=== PATIENT | male | born 1955 | race Caucasian/White ===

== ENCOUNTER 2021-02-27 11:42 | Inpatient (IN) | payer MEDICARE ==
[2021-02-27 12:16] VITALS: BMI 25.4
[2021-02-27] MEDS ORDERED: Dextrose 5% in Water 1,000 ML IV PRN (12:47)
[2021-02-27] MEDS ORDERED: Dextrose 50% Abboject 50 ML SYRINGE SLOW IVP PRN (12:47)
[2021-02-27] MEDS ORDERED: hydrALAZINE 20 MG/ML VIAL SLOW IVP PRN (12:47)
[2021-02-27] MEDS ORDERED: Ondansetron PF 4 MG/2 ML Vial IVP PRN (12:47)
[2021-02-27] MEDS ORDERED: traMADol HCl 50 MG TAB PO PRN (12:51)
[2021-02-27] MEDS: Morphine 4 MG/ML VIAL SLOW IVP PRN ×2 (13:24→17:57)
[2021-02-27] MEDS: Ibuprofen 200 MG TAB PO SCH ×2 (13:25→22:01)
[2021-02-27] MEDS: Acetaminophen 500 MG TAB PO SCH ×2 (13:26→22:02)
[2021-02-27] MEDS: Sodium Chloride 0.9% 1,000 ML IV SCH ×2 (13:27→22:03)
[2021-02-27] MEDS ORDERED: CEFAZOLIN 2 GM in Premix Bag 1 BAG IVPB SCH (13:30)
[2021-02-27] MEDS ORDERED: ceFAZolin Sodium/D5W 2 GM in Premix Bag 1 BAG IVPB SCH (13:45)
[2021-02-27] MEDS ORDERED: Ibuprofen 600 MG TAB PO SCH (14:00)
[2021-02-27] MEDS ORDERED: ceFAZolin 2 GM/DEX 5% 100 ML BAG ONE (18:28)
[2021-02-27] MEDS ORDERED: Fentanyl 100 MCG/2 ML VIAL ONE (19:42)
[2021-02-27] MEDS ORDERED: Midazolam HCl 2 mg/2 ml Vial ONE (19:51)
[2021-02-27] MEDS ORDERED: Glycopyrrolate 0.2 MG/ML 5 ML SYRINGE ONE (19:59)
[2021-02-27] MEDS ORDERED: Rocuronium Bromide 10 MG/ML (10ML VIAL) ONE (19:59)
[2021-02-27] MEDS ORDERED: PROPOFOL 200 MG/20 ML VIAL ONE (19:59)
[2021-02-27] MEDS ORDERED: Dexamethasone 20 MG/5 ML VIAL ONE (19:59)
[2021-02-27] MEDS ORDERED: Lidocaine 1% PF 5 ML VIAL ONE (19:59)
[2021-02-27] MEDS ORDERED: Ondansetron PF 4 MG/2 ML Vial ONE (19:59)
[2021-02-27] MEDS ORDERED: Ondansetron HCl/PF 4 MG/2 ML Vial IVP PRN (21:23)
[2021-02-27] MEDS ORDERED: PACU-Morphine 4MG/ML VIAL SLOW IVP PRN (21:23)
[2021-02-27] MEDS ORDERED: Promethazine HCl 25 MG/ML VIAL IVPB PRN (21:23)
[2021-02-27] MEDS ORDERED: Promethazine HCl 25 MG/ML VIAL IM PRN (21:23)
[2021-02-27] MEDS ORDERED: Ketorolac Tromethamine 30 MG/ML VIAL IVP PRN (21:23)
[2021-02-27] MEDS ORDERED: Ketorolac Tromethamine 30 MG/ML VIAL ONE (21:24)
[2021-02-27] MEDS: Senokot S 8.6-50 MG TAB PO SCH (22:01)
[2021-02-27] MEDS: Famotidine/PF 20 mg/2ml Vial SLOW IVP SCH (22:33)
[2021-02-28] MEDS: Acetaminophen 500 MG TAB PO SCH ×4 (02:19→20:20)
[2021-02-28] MEDS: Sodium Chloride 0.9% 1,000 ML IV SCH (02:20)
[2021-02-28] MEDS ORDERED: ceFAZolin Sodium/D5W 2 GM in Premix Bag 1 BAG IVPB SCH (04:00)
[2021-02-28] MEDS: Cyclobenzaprine 10 MG TAB PO PRN (04:10)
[2021-02-28] MEDS: Ibuprofen 200 MG TAB PO SCH ×3 (04:10→20:20)
[2021-02-28] MEDS: traMADol HCl 50 MG TAB PO PRN (04:10)
[2021-02-28 05:52] LABS: #Lymphocytes 0.6 thou/uL (1.20-3.40); #Monocytes 0.9 thou/uL (0.11-0.59); #Neutrophils 7.5 thou/uL (1.40-6.50); %Basophils 0.3 % (0.0-1.0); %Eosinophils 0.1 % (0.0-10.0); %Lymphocytes 6.3 % (21.0-51.0); %Monocytes 10.1 % (0.0-10.0); %Neutrophils 83.3 % (42.0-75.0); Hemoglobin 11.1 g/dL (14.0-18.0); Mean Corpuscular HGB CONC 34.8 g/dL (32.0-36.0); Mean Corpuscular Hemoglobin 30.1 pg (27.0-31.0); Mean Corpuscular Volume 86.6 fL (78.0-98.0); Mean Platelet Volume 8.3 fL (7.4-10.4); Platelet Count 142 thou/uL (130-400); RBC Distribution Width 13.4 % (11.5-14.5); Red Blood Cell (RBC) Count 3.68 mill/uL (4.70-6.10); White Blood Cell (WBC) Count 9.1 thou/uL (4.8-10.8)
[2021-02-28 06:10] LABS: Anion Gap 10 mmol/L (10-20); BUN (Urea Nitrogen) 12 mg/dL (8.4-25.7); Calc. Creatinine Clearance 84 mL/min (70-130); Calcium 7.4 mg/dL (7.8-10.44); Carbon Dioxide 22 mmol/L (23-31); Chloride 110 mmol/L (98-107); Glucose 161 mg/dL (80-115); Magnesium 1.6 mg/dL (1.6-2.6); Phosphorus 2.7 mg/dL (2.3-4.7); Potassium 3.9 mmol/L (3.5-5.1); Sodium 138 mmol/L (136-145)
[2021-02-28] MEDS: Famotidine/PF 20 mg/2ml Vial SLOW IVP SCH (08:43)
[2021-02-28] MEDS: Polyethylene Glycol 3350 17 GM Packet PO SCH (08:44)
[2021-02-28] MEDS: Senokot S 8.6-50 MG TAB PO SCH ×2 (08:46→20:21)
[2021-02-28] MEDS: Famotidine 20 MG TAB PO SCH ×2 (08:52→20:21)
[2021-02-28] MEDS ORDERED: Magnesium 2 GM/50 ML 2 GM in Premix Bag 1 BAG IVPB SCH (09:00)
[2021-02-28] MEDS ORDERED: PHOS-NAK 1 PKT PACK PO SCH (09:00)
[2021-02-28] MEDS: Morphine 4 MG/ML VIAL SLOW IVP PRN (17:08)
[2021-03-01] MEDS: Acetaminophen 500 MG TAB PO SCH ×4 (02:19→20:31)
[2021-03-01 05:56] LABS: #Eosinphils 0.4 thou/uL (0.0-0.7); #Lymphocytes 1.7 thou/uL (1.20-3.40); #Monocytes 0.7 thou/uL (0.11-0.59); #Neutrophils 3.7 thou/uL (1.40-6.50); %Basophils 0.1 % (0.0-1.0); %Eosinophils 6.1 % (0.0-10.0); %Lymphocytes 25.8 % (21.0-51.0); %Monocytes 10.6 % (0.0-10.0); %Neutrophils 57.4 % (42.0-75.0); Hemoglobin 9.3 g/dL (14.0-18.0); Mean Corpuscular HGB CONC 33.2 g/dL (32.0-36.0); Mean Corpuscular Hemoglobin 29.4 pg (27.0-31.0); Mean Corpuscular Volume 88.6 fL (78.0-98.0); Mean Platelet Volume 7.9 fL (7.4-10.4); Platelet Count 119 thou/uL (130-400); RBC Distribution Width 13.6 % (11.5-14.5); Red Blood Cell (RBC) Count 3.17 mill/uL (4.70-6.10); White Blood Cell (WBC) Count 6.4 thou/uL (4.8-10.8)
[2021-03-01] MEDS: Ibuprofen 200 MG TAB PO SCH ×3 (05:58→20:31)
[2021-03-01 06:14] LABS: Anion Gap 8 mmol/L (10-20); BUN (Urea Nitrogen) 15 mg/dL (8.4-25.7); Calc. Creatinine Clearance 82 mL/min (70-130); Calcium 7.9 mg/dL (7.8-10.44); Carbon Dioxide 28 mmol/L (23-31); Chloride 108 mmol/L (98-107); Glucose 103 mg/dL (80-115); Magnesium 2.1 mg/dL (1.6-2.6); Phosphorus 2.6 mg/dL (2.3-4.7); Potassium 4.4 mmol/L (3.5-5.1); Sodium 140 mmol/L (136-145)
[2021-03-01] MEDS: Polyethylene Glycol 3350 17 GM Packet PO SCH (09:12)
[2021-03-01] MEDS: Senokot S 8.6-50 MG TAB PO SCH ×2 (09:13→20:31)
[2021-03-01] MEDS: Enoxaparin Sodium 40 MG/0.4 ML SYRINGE SC SCH (10:28)
[2021-03-01] MEDS: Amlodipine 5 MG TAB PO SCH (10:28)
[2021-03-01] MEDS ORDERED: Sodium Chloride 0.9% 1,000 ML IV SCH (16:15)
[2021-03-02] MEDS: Acetaminophen 500 MG TAB PO SCH ×5 (02:16→23:53)
[2021-03-02 05:36] LABS: #Eosinphils 0.5 thou/uL (0.0-0.7); #Lymphocytes 1.3 thou/uL (1.20-3.40); #Monocytes 0.6 thou/uL (0.11-0.59); #Neutrophils 3.5 thou/uL (1.40-6.50); %Basophils 0.5 % (0.0-1.0); %Eosinophils 8.1 % (0.0-10.0); %Lymphocytes 22.7 % (21.0-51.0); %Monocytes 9.8 % (0.0-10.0); Hemoglobin 8.7 g/dL (14.0-18.0); Mean Corpuscular HGB CONC 34.4 g/dL (32.0-36.0); Mean Corpuscular Volume 87.1 fL (78.0-98.0); Mean Platelet Volume 8.2 fL (7.4-10.4); Platelet Count 134 thou/uL (130-400); RBC Distribution Width 13.5 % (11.5-14.5); Red Blood Cell (RBC) Count 2.92 mill/uL (4.70-6.10); White Blood Cell (WBC) Count 5.9 thou/uL (4.8-10.8)
[2021-03-02] MEDS: Ibuprofen 200 MG TAB PO SCH ×3 (05:52→21:03)
[2021-03-02 05:59] LABS: Anion Gap 10 mmol/L (10-20); BUN (Urea Nitrogen) 14 mg/dL (8.4-25.7); Calc. Creatinine Clearance 89 mL/min (70-130); Calcium 8.3 mg/dL (7.8-10.44); Carbon Dioxide 25 mmol/L (23-31); Chloride 110 mmol/L (98-107); Glucose 103 mg/dL (80-115); Magnesium 1.9 mg/dL (1.6-2.6); Phosphorus 2.6 mg/dL (2.3-4.7); Potassium 4.1 mmol/L (3.5-5.1); Sodium 141 mmol/L (136-145)
[2021-03-02] MEDS: Enoxaparin Sodium 40 MG/0.4 ML SYRINGE SC SCH (08:24)
[2021-03-02] MEDS: Senokot S 8.6-50 MG TAB PO SCH ×2 (08:25→21:03)
[2021-03-02] MEDS: Polyethylene Glycol 3350 17 GM Packet PO SCH (08:25)
[2021-03-02] MEDS: Amlodipine 5 MG TAB PO SCH (10:43)
[2021-03-02] MEDS: Cyclobenzaprine 10 MG TAB PO PRN (21:23)
[2021-03-03 04:31] LABS: #Eosinphils 0.4 thou/uL (0.0-0.7); #Lymphocytes 1.8 thou/uL (1.20-3.40); #Monocytes 0.6 thou/uL (0.11-0.59); #Neutrophils 2.7 thou/uL (1.40-6.50); %Basophils 0.4 % (0.0-1.0); %Eosinophils 7.3 % (0.0-10.0); %Lymphocytes 32.3 % (21.0-51.0); %Monocytes 10.7 % (0.0-10.0); %Neutrophils 49.3 % (42.0-75.0); Hemoglobin 8.7 g/dL (14.0-18.0); Mean Corpuscular HGB CONC 34.5 g/dL (32.0-36.0); Mean Corpuscular Hemoglobin 29.7 pg (27.0-31.0); Mean Corpuscular Volume 86.3 fL (78.0-98.0); Mean Platelet Volume 7.2 fL (7.4-10.4); Platelet Count 158 thou/uL (130-400); RBC Distribution Width 13.5 % (11.5-14.5); Red Blood Cell (RBC) Count 2.94 mill/uL (4.70-6.10); White Blood Cell (WBC) Count 5.4 thou/uL (4.8-10.8)
[2021-03-03] MEDS: Acetaminophen 500 MG TAB PO SCH ×3 (05:36→18:27)
[2021-03-03] MEDS: Ibuprofen 200 MG TAB PO SCH ×3 (05:37→20:56)
[2021-03-03 05:43] LABS: Anion Gap 10 mmol/L (10-20); BUN (Urea Nitrogen) 13 mg/dL (8.4-25.7); Calc. Creatinine Clearance 103 mL/min (70-130); Calcium 8.3 mg/dL (7.8-10.44); Carbon Dioxide 24 mmol/L (23-31); Chloride 107 mmol/L (98-107); Glucose 101 mg/dL (80-115); Phosphorus 3.2 mg/dL (2.3-4.7); Potassium 3.8 mmol/L (3.5-5.1); Sodium 137 mmol/L (136-145)
[2021-03-03] MEDS: Polyethylene Glycol 3350 17 GM Packet PO SCH (09:30)
[2021-03-03] MEDS: Senokot S 8.6-50 MG TAB PO SCH ×2 (09:31→21:10)
[2021-03-03] MEDS: Amlodipine 5 MG TAB PO SCH (09:32)
[2021-03-03] MEDS: Ascorbic Acid 500 mg Chewable Tablet PO SCH (09:32)
[2021-03-03] MEDS: Enoxaparin Sodium 40 MG/0.4 ML SYRINGE SC SCH (09:32)
[2021-03-03] MEDS: Ferrous Sulfate 325 MG TAB PO SCH (09:33)
[2021-03-04] MEDS: Acetaminophen 500 MG TAB PO SCH ×4 (00:18→18:56)
[2021-03-04] MEDS: Ibuprofen 200 MG TAB PO SCH ×3 (06:09→22:46)
[2021-03-04] MEDS: Amlodipine 5 MG TAB PO SCH (09:01)
[2021-03-04] MEDS: Ascorbic Acid 500 mg Chewable Tablet PO SCH (09:01)
[2021-03-04] MEDS: Enoxaparin Sodium 40 MG/0.4 ML SYRINGE SC SCH (09:02)
[2021-03-04] MEDS: Polyethylene Glycol 3350 17 GM Packet PO SCH (09:02)
[2021-03-04] MEDS: Senokot S 8.6-50 MG TAB PO SCH ×2 (09:03→21:14)
[2021-03-04] MEDS: Ferrous Sulfate 325 MG TAB PO SCH (09:08)
[2021-03-04] MEDS: Cyclobenzaprine 10 MG TAB PO PRN (22:48)
[2021-03-05] MEDS: Acetaminophen 500 MG TAB PO SCH ×4 (01:39→17:54)
[2021-03-05] MEDS: Ibuprofen 200 MG TAB PO SCH ×2 (05:51→14:27)
[2021-03-05] MEDS: Senokot S 8.6-50 MG TAB PO SCH (08:47)
[2021-03-05] MEDS: Ferrous Sulfate 325 MG TAB PO SCH (08:47)
[2021-03-05] MEDS: Polyethylene Glycol 3350 17 GM Packet PO SCH (08:48)
[2021-03-05] MEDS: Amlodipine 5 MG TAB PO SCH (08:48)
[2021-03-05] MEDS: Enoxaparin Sodium 40 MG/0.4 ML SYRINGE SC SCH (08:48)
[2021-03-05] MEDS: Ascorbic Acid 500 mg Chewable Tablet PO SCH (08:48)
[2021-03-05 15:54] VITALS: BP 128/68; TEMP 98.2
[2021-03-05] MEDS: traMADol HCl 50 MG TAB PO PRN (18:22)
== END 2021-03-05 19:10 | disposition swing bed (61) | DRG 481 ==
LOC: SURG B 12:07
PROVIDERS: ADMIT Surgery; ATTEND Surgery
PROC: 0QH736Z Insertion of Intramedullary Internal Fixation Device into Left Upper Femur, Percutaneous Approach (ICD-10-PCS; principal; 2021-02-27)
DX: S72.22XA Displaced subtrochanteric fracture of left femur, initial encounter for closed fracture (principal); D62 Acute posthemorrhagic anemia; Z20.822 Contact with and (suspected) exposure to COVID-19; W55.22XA Struck by cow, initial encounter; I95.1 Orthostatic hypotension
CPT/HCPCS: 36415; 76000; 80048; 83735; 84100; 85025; C1713; J1100; J1650; J1885; J2250; J2270; J2405; J2704; J3010; J3475; J7050; S0028

== ENCOUNTER 2021-05-25 14:03 | Outpatient (CLI) | payer MEDICARE | END 2021-05-25 14:04 | disposition home or self-care (01) | LOC: BICULT 14:03 | PROVIDERS: ATTEND Family Medicine | DX: R60.0 Localized edema (principal); I82.402 Acute embolism and thrombosis of unspecified deep veins of left lower extremity ==

== ENCOUNTER 2021-05-25 15:05 | Emergency (ER) | payer MEDICARE ==
[2021-05-25 16:36] LABS: #Eosinphils 0.5 thou/uL (0.0-0.7); #Lymphocytes 1.6 thou/uL (1.20-3.40); #Monocytes 0.5 thou/uL (0.11-0.59); #Neutrophils 2.7 thou/uL (1.40-6.50); %Basophils 0.5 % (0.0-1.0); %Eosinophils 10.2 % (0.0-10.0); %Lymphocytes 29.2 % (21.0-51.0); %Neutrophils 51.1 % (42.0-75.0); Hemoglobin 13.5 g/dL (14.0-18.0); Mean Corpuscular HGB CONC 32.9 g/dL (32.0-36.0); Mean Corpuscular Hemoglobin 29.9 pg (27.0-31.0); Mean Corpuscular Volume 90.9 fL (78.0-98.0); Mean Platelet Volume 7.1 fL (7.4-10.4); Platelet Count 195 thou/uL (130-400); White Blood Cell (WBC) Count 5.3 thou/uL (4.8-10.8)
[2021-05-25 17:00] LABS: ALT (SGPT) 38 U/L (8-55); AST (SGOT) 31 U/L (5-34); Albumin 3.9 g/dL (3.4-4.8); Alkaline Phosphatase 132 U/L (40-110); Anion Gap 10 mmol/L (10-20); BUN (Urea Nitrogen) 12 mg/dL (8.4-25.7); Bilirubin, Total 0.3 mg/dL (0.2-1.2); Calc. Creatinine Clearance 0 mL/min (70-130); Carbon Dioxide 28 mmol/L (23-31); Chloride 106 mmol/L (98-107); Globulin 3.4 g/dL (2.4-3.5); Glucose 97 mg/dL (80-115); Potassium 4.2 mmol/L (3.5-5.1); Protein, Total 7.3 g/dL (5.8-8.1); Sodium 140 mmol/L (136-145)
== END 2021-05-25 17:32 | disposition home or self-care (01) ==
LOC: ERS 15:05
DX: I82.402 Acute embolism and thrombosis of unspecified deep veins of left lower extremity (principal); Z79.899 Other long term (current) drug therapy; R60.0 Localized edema
CPT/HCPCS: 36415; 80053; 85025; 99283

== ENCOUNTER 2021-06-28 10:37 | Outpatient (CLI) | payer MEDICARE | END 2021-06-28 10:38 | disposition home or self-care (01) | LOC: CT 10:37 | PROVIDERS: ATTEND Orthopaedic Surgery | DX: S72.142D Displaced intertrochanteric fracture of left femur, subsequent encounter for closed fracture with routine healing (principal); Z98.890 Other specified postprocedural states ==

== ENCOUNTER 2021-07-27 05:26 | Inpatient (IN) | payer MEDICARE ==
[2021-07-24 11:17] VITALS: BMI 26.9
[2021-07-27] MEDS ORDERED: ceFAZolin (BATCH) 2 GM/100 ML BAG ONE (07:11)
[2021-07-27] MEDS ORDERED: Fentanyl 250 MCG/5 ML VIAL ONE (07:19)
[2021-07-27] MEDS ORDERED: ePHEDrine 50 MG/ML VIAL ONE ×2 (07:54)
[2021-07-27] MEDS ORDERED: Lidocaine 1% PF 5 ML VIAL ONE (07:54)
[2021-07-27] MEDS ORDERED: Glycopyrrolate 0.2 MG/ML 5 ML SYRINGE ONE (07:54)
[2021-07-27] MEDS ORDERED: Rocuronium Bromide 10 MG/ML (10ML VIAL) ONE (07:54)
[2021-07-27] MEDS ORDERED: Ondansetron PF 4 MG/2 ML Vial ONE ×2 (07:54→11:09)
[2021-07-27] MEDS ORDERED: Ketorolac Tromethamine 30 MG/ML VIAL ONE (07:54)
[2021-07-27] MEDS ORDERED: Dexamethasone 20 MG/5 ML VIAL ONE (07:54)
[2021-07-27] MEDS ORDERED: PROPOFOL 200 MG/20 ML VIAL ONE (07:54)
[2021-07-27] MEDS ORDERED: Promethazine HCl 25 MG/ML VIAL IVPB PRN (08:21)
[2021-07-27] MEDS ORDERED: HYDROmorphone 2 MG/ML VIAL SLOW IVP PRN (08:21)
[2021-07-27] MEDS ORDERED: Meperidine HCl/PF 25 MG/ML VIAL SLOW IVP PRN (08:21)
[2021-07-27] MEDS ORDERED: Ondansetron PF 4 MG/2 ML Vial SLOW IVP PRN (09:57)
[2021-07-27] MEDS ORDERED: traMADol HCl 50 MG TAB PO PRN (09:57)
[2021-07-27] MEDS ORDERED: ceFAZolin 2 GM/Dextrose 50 ML 2 GM in Premix Bag 1 BAG IVPB SCH (10:00)
[2021-07-27] MEDS ORDERED: PHARMACY TO RENALLY ADJUST ABX FS SCH (10:00)
[2021-07-27] MEDS ORDERED: TETANUS AND DIPHTHERIA TOX/PF 0.5 ML DISP.SYRIN IM SCH (10:00)
[2021-07-27] MEDS ORDERED: Fentanyl 100 MCG/2 ML VIAL ONE (10:39)
[2021-07-27] MEDS: HYDROcodone/Acetaminophen 10/325 mg Tablet PO PRN ×3 (13:47→22:14)
[2021-07-27] MEDS: CEFAZOLIN 2 GM, Admixture Fee 1 EACH in Sodium Chloride 0.9% 100 ML IVPB SCH (13:52)
[2021-07-27] MEDS: Aspirin 81 mg Enteric Coated Tablet PO SCH (19:46)
[2021-07-28] MEDS: HYDROcodone/Acetaminophen 10/325 mg Tablet PO PRN ×3 (02:00→11:59)
[2021-07-28] MEDS: CEFAZOLIN 2 GM, Admixture Fee 1 EACH in Sodium Chloride 0.9% 100 ML IVPB SCH ×2 (02:15→08:12)
[2021-07-28 05:18] LABS: #Eosinphils 0.1 thou/uL (0.0-0.7); #Lymphocytes 1.4 thou/uL (1.20-3.40); #Neutrophils 5.7 thou/uL (1.40-6.50); %Eosinophils 0.6 % (0.0-10.0); %Lymphocytes 17.1 % (21.0-51.0); %Monocytes 12.4 % (0.0-10.0); %Neutrophils 69.9 % (42.0-75.0); Mean Corpuscular HGB CONC 33.7 g/dL (32.0-36.0); Mean Corpuscular Hemoglobin 31.1 pg (27.0-31.0); Mean Corpuscular Volume 92.4 fL (78.0-98.0); Mean Platelet Volume 7.6 fL (7.4-10.4); Platelet Count 166 thou/uL (130-400); RBC Distribution Width 12.8 % (11.5-14.5); Red Blood Cell (RBC) Count 3.85 mill/uL (4.70-6.10); White Blood Cell (WBC) Count 8.2 thou/uL (4.8-10.8)
[2021-07-28 05:35] LABS: ALT (SGPT) 14 U/L (8-55); AST (SGOT) 19 U/L (5-34); Albumin 3.3 g/dL (3.4-4.8); Alkaline Phosphatase 78 U/L (40-110); Anion Gap 10 mmol/L (10-20); BUN (Urea Nitrogen) 12 mg/dL (8.4-25.7); Bilirubin, Total 0.9 mg/dL (0.2-1.2); Calc. Creatinine Clearance 83 mL/min (70-130); Calcium 8.2 mg/dL (7.8-10.44); Carbon Dioxide 26 mmol/L (23-31); Chloride 104 mmol/L (98-107); Globulin 2.5 g/dL (2.4-3.5); Glucose 119 mg/dL (80-115); Protein, Total 5.8 g/dL (5.8-8.1); Sodium 136 mmol/L (136-145)
[2021-07-28] MEDS: Aspirin 81 mg Enteric Coated Tablet PO SCH (07:45)
[2021-07-28] MEDS ORDERED: Ferrous Sulfate 325 MG TAB PO SCH (08:30)
[2021-07-28] MEDS ORDERED: Multivitamin W/ Minerals 1 TAB PO SCH (09:00)
[2021-07-28] MEDS ORDERED: Amlodipine 5 MG TAB PO SCH (09:00)
[2021-07-28] MEDS ORDERED: Ascorbic Acid 500 mg Chewable Tablet PO SCH (09:00)
[2021-07-28] MEDS ORDERED: Apixaban 5 MG TAB PO SCH (09:00)
[2021-07-28 11:50] VITALS: BP 109/63; TEMP 97.9
== END 2021-07-28 13:50 | disposition home or self-care (01) | DRG 482 ==
LOC: SDC 05:26 → SURG A 10:02
PROVIDERS: ADMIT Orthopaedic Surgery; ATTEND Orthopaedic Surgery
PROC: 0QS704Z Reposition Left Upper Femur with Internal Fixation Device, Open Approach (ICD-10-PCS; principal; 2021-07-27)
PROC: 0QU70KZ Supplement Left Upper Femur with Nonautologous Tissue Substitute, Open Approach (ICD-10-PCS; 2021-07-27)
DX: S72.22XK Displaced subtrochanteric fracture of left femur, subsequent encounter for closed fracture with nonunion (principal); Z79.01 Long term (current) use of anticoagulants; W19.XXXD Unspecified fall, subsequent encounter; Z86.718 Personal history of other venous thrombosis and embolism; Z20.822 Contact with and (suspected) exposure to COVID-19
CPT/HCPCS: 36415; 76000; 80053; 85025; C1713; J0690; J1100; J1885; J2405; J2704; J3010; J3490; U0003; U0005

== ENCOUNTER 2022-02-14 08:07 | Outpatient (CLI) | payer MEDICARE | END 2022-02-14 08:08 | disposition home or self-care (01) | LOC: BICCT 08:07 | PROVIDERS: ATTEND Orthopaedic Surgery | DX: S72.22XK Displaced subtrochanteric fracture of left femur, subsequent encounter for closed fracture with nonunion (principal); Z98.890 Other specified postprocedural states ==

== ENCOUNTER 2024-08-19 17:53 | Emergency (ER) | payer MEDICARE, OTHER ==
[2024-08-19] MEDS ORDERED: Morphine 4 MG/ML VIAL ONE (18:26)
[2024-08-19] MEDS ORDERED: Ondansetron PF 4 MG/2 ML Vial ONE (18:26)
[2024-08-19 18:27] LABS: #Basophils 0.06 10x3/uL (0.0-0.2); %Eosinophils 7.8 % (0.0-10.0); %Lymphocytes 35.7 % (21.0-51.0); %Neutrophils 45.9 % (42.0-75.0); Hematocrit 42.2 % (42.0-52.0); Mean Corpuscular HGB CONC 33.2 g/dL (32.0-36.0); Mean Corpuscular Hemoglobin 28.7 pg (27.0-31.0); Mean Corpuscular Volume 86.5 fL (78.0-98.0); Mean Platelet Volume 9.7 fL (7.4-10.4); Platelet Count 170 10x3/uL (130-400); RBC Distribution Width 13.2 % (11.5-14.5); Red Blood Cell (RBC) Count 4.88 mill/uL (4.70-6.10)
[2024-08-19 18:40] LABS: ALT (SGPT) 23 U/L (Less than 45); AST (SGOT) 34 U/L (11-34); Albumin 4.2 g/dL (3.1-4.5); Alkaline Phosphatase 76 U/L (40-110); Anion Gap 11 mmol/L (10-20); BUN (Urea Nitrogen) 10 mg/dL (8.4-25.7); Bilirubin, Total 0.5 mg/dL (0.3-1.2); Calc. Creatinine Clearance 0 mL/min (70-130); Calcium 8.9 mg/dL (7.8-10.44); Carbon Dioxide 22 mmol/L (23-31); Chloride 110 mmol/L (98-107); Estimated GFR 76; Globulin 3.3 g/dL (2.4-3.5); Glucose 100 mg/dL (80-115); Magnesium 2.1 mg/dL (1.6-2.6); Potassium 3.9 mmol/L (3.5-5.1); Protein, Total 7.5 g/dL (5.8-8.1); Sodium 139 mmol/L (136-145)
[2024-08-19 18:43] LABS: Troponin I Less than 0.010 ng/mL (< 0.028)
[2024-08-19] MEDS ORDERED: Ketorolac Tromethamine 30 MG (1 mL) VIAL ONE (19:22)
== END 2024-08-19 20:40 | disposition home or self-care (01) ==
LOC: ERS 17:53
DX: S20.219A Contusion of unspecified front wall of thorax, initial encounter (principal); S00.81XA Abrasion of other part of head, initial encounter; S60.511A Abrasion of right hand, initial encounter; R91.1 Solitary pulmonary nodule; I10 Essential (primary) hypertension; Z55.6 Problems related to health literacy; V49.40XA Driver injured in collision with unspecified motor vehicles in traffic accident, initial encounter
CPT/HCPCS: 71045; 71260; 73552; 74177; 80053; 83735; 84484; 85025; 93005; J1885; J2270; J2405; 96374; 96375; G0390